=== PATIENT | male | born 1975 ===

== ENCOUNTER 2018-09-25 06:45 | Emergency (ER) | payer MEDICAID, SELFPAY | END 2018-09-25 09:40 | disposition left against medical advice (07) | LOC: ED 06:45 → ERH 08:19 ==

== ENCOUNTER 2018-09-25 14:49 | Emergency (ER) | payer MEDICAID | END 2018-09-25 17:35 | disposition left against medical advice (07) | LOC: ED 14:49 → ERH 15:13 ==